=== PATIENT | female | born 1980 | race Caucasian/White ===

== ENCOUNTER → 2017-03-25 | Outpatient (CLI) | payer BC | LOC: HPND 12:28 | PROVIDERS: ATTEND Obstetrics & Gynecology | DX: O09.521 Supervision of elderly multigravida, first trimester (principal); Z36.82 Encounter for antenatal screening for nuchal translucency | CPT/HCPCS: 36415; 76813 ==

== ENCOUNTER → 2017-05-06 | Outpatient (CLI) | payer BC | LOC: HPND 13:27 | PROVIDERS: ATTEND Obstetrics & Gynecology | DX: O09.522 Supervision of elderly multigravida, second trimester (principal) | CPT/HCPCS: 76811 ==

== ENCOUNTER 2017-10-12 18:06 | Inpatient (IN) ==
[2017-10-12] MEDS ORDERED: fentaNYL Citrate Inj 100 MCG/2 ML Ampul IV.PUSH PRN ×3 (19:24→19:48)
[2017-10-12] MEDS ORDERED: Sod Chloride 0.9% Inj 1,000 ML IV.CONT PRN (19:24)
[2017-10-12] MEDS ORDERED: Oxytocin 30 Units/500ml Premix 30 UNITS/500 ML BAG IV.SIG ONE (19:24)
[2017-10-12] MEDS ORDERED: Sodium Chlor 0.9% Inj 500 ML IV.SIG PRN (19:24)
[2017-10-12] MEDS ORDERED: Citric Acid/Sodium Citrate Liq 30 ML UDC PO SCH (19:30)
[2017-10-12 19:34] LABS: Baso % (Auto) 0.5 % (0.0-2.0); Eos # (Auto) 0.1 th/mm3 (0.0-0.4); Eos % (Auto) 0.8 % (0.0-4.0); Hematocrit 37.9 % (35.0-46.0); Hemoglobin 12.7 gm/dL (11.6-15.3); Lymph % (Auto) 20.1 % (9.0-44.0); Mean Corpuscular HGB Conc 33.4 % (32.0-36.0); Mean Corpuscular Hemoglobin 29.5 pg (27.0-34.0); Mean Corpuscular Volume 88.3 fL (80.0-100.0); Mono # (Auto) 0.7 th/mm3 (0.0-0.9); Mono % (Auto) 6.9 % (0.0-8.0); Neut # (Auto) 7.2 th/mm3 (1.8-7.7); Neut % (Auto) 71.7 % (16.0-70.0); Platelet Count 159 th/mm3 (150-450); Red Cell Distribution Width 14.5 % (11.6-17.2)
[2017-10-12 19:38] LABS: Amphetamine Urine With Conf Neg (Neg); Benzodiazepine Urine With Conf Neg (Neg)
[2017-10-12] MEDS ORDERED: Zolpidem Tartrate 5 MG Tablet PO PRN (19:40)
[2017-10-12 19:42] LABS: Bacteria,Urine Rare /hpf; Bilirubin,Urine Negative (Negative); Clarity,Urine Clear (Clear); Color,Urine Straw (Yellw/Straw); Glucose,Urine (UA) Negative (Negative); Leukocyte Esterase,Urine Negative (Negative); Mucus,Urine Few /lpf (Occasional); Nitrite,Urine Negative (Negative); Specific Gravity,Urine 1.004 (1.002-1.035); Squamous Epithelial Cell,Urine <1 /hpf (0-5)
--- NOTE | 2017-10-12 21:32 | MH ---
cc: Sal Joya MD DATE OF ADMISSION: 10/12/2017 ADMITTING DIAGNOSIS: at 41, 42 weeks. HISTORY OF PRESENT ILLNESS: The patient is a 36-year-old single white female, para 0, LMP of 12/31/2016, EDC of 10/07/2017 by dates and 10/03/2017 by early ultrasound. Course was benign, with normal first TM screen. Preop testing has been normal. She became post-dates and now admitted for induction of labor. Her last ultrasound on 10/08/2017 showed vertex presentation, normal fluid EFW of 3558 grams, with anterior placenta and normal BPP. PAST MEDICAL HISTORY: Previous surgery, age 11, she had a shoulder dislocation, left side post fall. MEDICATIONS: Vitamins and iron pills. ALLERGIES: NONE. TRANSFUSIONS: None. OBSTETRIC HISTORY: First . SOCIAL HISTORY: She is single. She has a long-term relationship. She works for the [employer]. Alcohol, tobacco and drugs are none. FAMILY HISTORY: Noncontributory. REVIEW OF SYSTEMS: Negative. PHYSICAL EXAMINATION: GENERAL: Reveals a well-nourished, well-developed white female. VITAL SIGNS: Stable. HEENT: Normal. PULMONARY: Her chest is clear. CARDIOVASCULAR: Regular rate. BREASTS: The breasts are symmetrical. ABDOMEN: Gravid. ESTIMATED WEIGHT: 3300 grams. PELVIC: Cervix is closed. EXTREMITIES: Normal. ASSESSMENT AND PLAN: As above. She is now admitted for Cervidil, Pitocin induction. Should she have failure to progress or distress, will need delivery. The patient wished to proceed. MD KRAIG Lopez/RENNY , 08:57 PM , 09:31 PM MARGE
[2017-10-13] MEDS ORDERED: Oxytocin 30 Units/500ml Premix 30 UNITS/500 ML BAG IV.SIG PRN (05:00)
[2017-10-13] MEDS ORDERED: Lidocaine PF 1% Inj 30 ML Vial ONE (10:56)
--- NOTE | 2017-10-13 12:27 | MP ---
cc: Sal Joya MD DATE OF OPERATION: 10/13/2017 DATE OF DELIVERY: 10/13/2017 DELIVERY SUMMARY: The patient is a 36-year-old single white female, para 0, admitted for Cervidil and Pitocin induction. She progressed to a spontaneous vaginal delivery over a midline episiotomy, a viable vigorous male. The baby had a loose nuchal cord. The mouth was suctioned, the cord clamped and cut and the Mom had skin to skin contact. The midline episiotomy was anesthetized predelivery with lidocaine 1%, 10 mL, and repaired with 2-0 chromic in standard fashion. Post-delivery of the placenta, 3-vessel intact. Inspection of the cervix and vagina was normal. All counts were correct. Rectal exam was normal. Sal Joya MD JAW/SB , 12:13 PM , 12:26 PM
[2017-10-13] MEDS ORDERED: Measles/Mumps/Rubella Vaccine Inj 0.5 ML Vial SQ ONE (16:00)
[2017-10-13] MEDS ORDERED: Diphtheria/Tetanus/Pertussis Vaccine Inj 0.5 ML Syringe IM ONE (16:00)
[2017-10-13] MEDS ORDERED: Acetaminophen 325 MG Tablet PO PRN (21:37)
[2017-10-13] MEDS ORDERED: Benzocaine 20% Top Spray 60 ML Can TOPICAL PRN (21:37)
[2017-10-13] MEDS ORDERED: Naloxone Inj 0.4 MG/ML Vial IV.PUSH PRN (21:37)
[2017-10-13] MEDS ORDERED: Zolpidem Tartrate 5 MG Tablet PO PRN (21:37)
[2017-10-13] MEDS ORDERED: Ibuprofen 400 MG Tablet PO PRN (21:37)
[2017-10-13] MEDS ORDERED: Witch Hazel 50%/Glyderin 12.5% 40 Pad Jar RECTAL PRN (21:37)
[2017-10-13] MEDS ORDERED: Bisacodyl 10 MG Supp RECTAL PRN (21:37)
[2017-10-13] MEDS ORDERED: Oxytocin 30 Units/500ml Premix 30 UNITS/500 ML BAG IV.CONT SCH (21:45)
[2017-10-14 05:19] LABS: Hematocrit 31.3 % (35.0-46.0); Hemoglobin 10.6 gm/dL (11.6-15.3); Mean Corpuscular HGB Conc 33.8 % (32.0-36.0); Mean Corpuscular Hemoglobin 29.9 pg (27.0-34.0); Mean Corpuscular Volume 88.6 fL (80.0-100.0); Mean Platelet Volume 9.6 fL (7.0-11.0); Platelet Count 146 th/mm3 (150-450); Red Blood Count 3.54 mil/mm3 (4.00-5.30); Red Cell Distribution Width 14.1 % (11.6-17.2); White Blood Count 15.1 th/mm3 (4.0-11.0)
[2017-10-14 08:34] VITALS: BP 109/71; PULSE 59; RESP 18; TEMP 98.2
[2017-10-14] MEDS ORDERED: Senna/Docusate Sodium 8.6/50 MG Tablet PO SCH (09:00)
== END 2017-10-14 19:00 | disposition home or self-care (01) ==
LOC: HOBG 18:06 → H2E 18:06 → H1EA 10-13 14:00 → H2E 10-13 14:01 → EDSTATUS 12-16 14:48 → UNDODEPCLI 12-16 14:53
PROVIDERS: ADMIT Obstetrics & Gynecology; ATTEND Obstetrics & Gynecology